=== PATIENT | female | born 1955 | race Caucasian/White ===

== ENCOUNTER → 2018-04-07 | Outpatient (CLI) | payer MEDICAID ==
[2016-09-07 04:10] VITALS: BP 127/65
[~2018-04-07] MED LIST: ALBUTEROL0.09 MG/A4 IH; ALBUTEROL0.83 MG/ML IH; ANUSOL HC CREAM30 GM TP; ASPIR LOW81 MG PO; BUSPIRONE HCL10 MG PO; EFFEXOR XR75 M1 PO; KETOROLAC TROME10 MG PO; LISINOPRIL40 MG PO; NORTRIPTYLINE H50 M1 PO; PERCOCET 325 MG1 TAB PO; PHENERGAN 25 TA25 MG; PHENERGAN25 MG RC; SYMBICORT1 AE3 IH; TESSALON PERLE100 MG PO; ULTRAM 50MG TAB50 MG PO; ZOFRAN4 M1 PO
== END ==
LOC: MAMMO 10:35
DX: Z13.820 Encounter for screening for osteoporosis (principal); M81.0 Age-related osteoporosis without current pathological fracture

== ENCOUNTER 2019-01-31 17:51 | Emergency (ER) | payer MEDICAID ==
[2019-01-31] MEDS ORDERED: CELEBREX 1100 MG/CAP PO (18:07)
[2019-01-31] MEDS ORDERED: ACETAMINOPHEN-O1 TAB PO (18:07)
[2019-01-31] MEDS ORDERED: INCRUSE EL62.5 MCG/A IH (18:08)
[2019-01-31] MEDS ORDERED: AMBIEN5 M1 PO (18:09)
[2019-01-31] MEDS ORDERED: LIPITOR 40MG TA40 MG PO (18:09)
[2019-01-31] MEDS ORDERED: CYMBALTA60 M1 PO (18:09)
[2019-01-31] MEDS ORDERED: ALPRAZOLAM0.25 MG PO (18:10)
[2019-01-31] MEDS ORDERED: OMEPRAZOLE40 MG PO (18:10)
[2019-01-31] MEDS ORDERED: AUGMENTIN 875-1 EAC1 PO (18:36)
[2019-01-31 18:51] VITALS: BP 130/82
== END 2019-01-31 18:52 | disposition home or self-care (01) ==
LOC: ED 17:51
DX: S81.812A Laceration without foreign body, left lower leg, initial encounter (principal); Z23 Encounter for immunization; F17.210 Nicotine dependence, cigarettes, uncomplicated; Z79.82 Long term (current) use of aspirin; Z79.51 Long term (current) use of inhaled steroids; W54.0XXA Bitten by dog, initial encounter; Y92.009 Unspecified place in unspecified non-institutional (private) residence as the place of occurrence of the external cause
CPT/HCPCS: 90714

== ENCOUNTER → 2019-12-29 | Outpatient (CLI) | payer MEDICAID ==
[~2019-12-29] MED LIST changes: +ACETAMINOPHEN-O1 TAB PO; +ALPRAZOLAM0.25 MG PO; +AMBIEN5 M1 PO; +AUGMENTIN 875-1 EAC1 PO; +CELEBREX 1100 MG/CAP PO; +CYMBALTA60 M1 PO; +INCRUSE EL62.5 MCG/A IH; +LIPITOR 40MG TA40 MG PO; +OMEPRAZOLE40 MG PO
[2019-12-29 08:59] LABS: POTASSIUM 4.7 mmol/L (3.5-5.1)
[2019-12-29 09:00] LABS: CALCIUM 10.9 mg/dL (8.3-10.5)
== END ==
LOC: LAB 08:18
PROVIDERS: Physician Assistant
DX: I10 Essential (primary) hypertension (principal); E83.52 Hypercalcemia

== ENCOUNTER → 2020-01-24 | Outpatient (CLI) | payer MEDICAID ==
[2020-01-27 09:30] LABS: URINE TOTAL VOLUME 3500 mL
== END ==
LOC: LAB 10:46
PROVIDERS: Physician Assistant
DX: E83.52 Hypercalcemia (principal)

== ENCOUNTER → 2021-09-17 | Outpatient (CLI) | payer MEDICARE, MEDICAID | LOC: VAS 07:15 → RAD 07:15 → VAS 07:26 | DX: M79.662 Pain in left lower leg (principal); R60.0 Localized edema ==

== ENCOUNTER → 2021-09-25 | Outpatient (CLI) | payer MEDICARE, MEDICAID ==
[2021-09-25 11:52] LABS: POTASSIUM 4.5 mmol/L (3.5-5.1)
[2021-09-25 11:53] LABS: CALCIUM 10.9 mg/dL (8.3-10.5)
== END ==
LOC: LAB 11:29
PROVIDERS: Physician Assistant
DX: M79.662 Pain in left lower leg (principal)

== ENCOUNTER → 2021-10-15 | Outpatient (CLI) | payer MEDICARE, MEDICAID | LOC: RAD 09:11 | DX: M79.662 Pain in left lower leg (principal) ==

== ENCOUNTER → 2023-12-23 | Day surgery (SDC) | payer MEDICARE, MEDICAID | LOC: MSO 07:27 | DX: H25.12 Age-related nuclear cataract, left eye (principal); F17.210 Nicotine dependence, cigarettes, uncomplicated | CPT/HCPCS: 00142; J0171; J2250; V2632 ==

== ENCOUNTER 2024-09-13 09:40 | Emergency (ER) | payer MEDICARE ==
[~2024-09-13] VITALS: Ht 154.9 cm; Wt 86.3 kg
[2024-09-13 09:48] VITALS: BP 148/85
[2024-09-13] MEDS ORDERED: LYRICA75 MG PO (10:07)
== END 2024-09-13 11:26 | disposition home or self-care (01) ==
LOC: ED 09:40
DX: M25.561 Pain in right knee (principal); M79.671 Pain in right foot; Z98.890 Other specified postprocedural states; W01.0XXA Fall on same level from slipping, tripping and stumbling without subsequent striking against object, initial encounter